=== PATIENT | male | born 1965 | race Caucasian/White ===

== ENCOUNTER 2018-01-02 05:39 | Emergency (ER) | payer MEDICARE, OTHER ==
[~2018-01-02] VITALS: Ht 162.6 cm; Wt 80.7 kg
[2018-01-02 05:48] VITALS: BP 140/79
[2018-01-02 06:24] LABS: APPEARANCE,URINE CLEAR (CLEAR); BILIRUBIN,URINE NEGATIVE (NEGATIVE); BLOOD, URINE NEGATIVE Ery/uL (NEGATIVE); COLOR,URINE YELLOW (YELLOW); KETONES,URINE NEGATIVE (NEGATIVE); LEUKOCYTE ESTERASE ,URINE NEGATIVE (NEGATIVE); NITRITE, URINE NEGATIVE (NEGATIVE); PH,URINE 6.5 (5.0-8.0); PROTEIN,URINE 1+ mg/dl (NEGATIVE); UGLUCOSE NEGATIVE (NEGATIVE); UROBILINOGEN,URINE 0.2 EU/dL (0.2)
[2018-01-02 06:25] LABS: BACTERIA,URINE None seen /HPF (None Seen); RBC,URINE 0-2 /HPF (0-2); WBC,URINE 0-2 /HPF (0-3)
[2018-01-02 06:26] LABS: MUCUS,URINE Few /LPF (None Seen); SQUAMOUS EPITHELIAL CELL,UR 0-2 /HPF (None Seen); URINE AMORPHOUS URATE Few /HPF (None Seen)
== END 2018-01-02 06:37 | disposition home or self-care (01) ==
LOC: ER 05:39
DX: R35.0 Frequency of micturition (principal); I10 Essential (primary) hypertension; E11.9 Type 2 diabetes mellitus without complications; N40.0 Benign prostatic hyperplasia without lower urinary tract symptoms; Z86.73 Personal history of transient ischemic attack (TIA), and cerebral infarction without residual deficits
CPT/HCPCS: 81000-TC; 87086-TC; A4606; Z7610

== ENCOUNTER 2019-12-17 09:09 | Emergency (ER) | payer MEDICARE, MEDICAID ==
[~2019-12-17] VITALS: Ht 162.6 cm; Wt 72.6 kg
--- NOTE | 2019-12-17 09:20 | NUR ---
patient came in to the er c/o right shoulder pain s/p lifting weights. On room air, breathing evenly and unlabored. kept comfortable, will continue to monitor accordingly.
[2019-12-17] MEDS ORDERED: LIDOCAINE 5% (PATCH) 1 EA PATCH TP SCH (09:30)
--- NOTE | 2019-12-17 09:40 | NUR ---
Galilea at bedside for x-ray.
--- NOTE | 2019-12-17 10:13 | NUR ---
Patient discharged to home in stable condition. Written and verbal after care instructions given. Patient verbalizes understanding of instruction.
[2019-12-17 10:14] VITALS: BP 140/78
== END 2019-12-17 10:15 | disposition home or self-care (01) ==
LOC: ER 09:09
DX: M25.511 Pain in right shoulder (principal); I10 Essential (primary) hypertension; E11.9 Type 2 diabetes mellitus without complications; N40.0 Benign prostatic hyperplasia without lower urinary tract symptoms; Z86.73 Personal history of transient ischemic attack (TIA), and cerebral infarction without residual deficits; X50.0XXA Overexertion from strenuous movement or load, initial encounter; Y93.89 Activity, other specified; Y92.89 Other specified places as the place of occurrence of the external cause; Y99.8 Other external cause status
CPT/HCPCS: 73030-TC

== ENCOUNTER 2022-11-22 11:24 | Emergency (ER) | payer OTHER ==
[~2022-11-22] VITALS: Ht 162.6 cm; Wt 74.4 kg
--- NOTE | 2022-11-22 11:39 | NUR ---
BIBS C/O POLYURIA X 1MONTH. DENIES PAIN OR BLOOD IN URINE.
--- NOTE | 2022-11-22 12:10 | NUR ---
MEDICAL DELIVERY DRIVER AT BEDSIDE
[2022-11-22 12:20] LABS: BASOPHILS % (AUTO) 0.7 % (0.0-2.0); EOSINOPHILS % (AUTO) 3.4 % (0.0-6.0); HEMATOCRIT 36 % (39-51); HEMOGLOBIN 11.8 g/dL (13.5-17.5); LYMPHOCYTES # (AUTO) 1.1 K/uL (0.8-4.8); LYMPHOCYTES % (AUTO) 25.3 % (20.0-44.0); MEAN CORPUSCULAR HGB CONC 33 g/dl (31.0-36.0); MEAN CORPUSCULAR VOLUME 89 fL (80-96); MONOCYTES # (AUTO) 0.3 K/uL (0.1-1.30); MONOCYTES % (AUTO) 7.8 % (2.0-12.0); NEUTROPHILS # (AUTO) 2.8 K/uL (1.8-8.9); NEUTROPHILS % (AUTO) 62.8 % (43.0-81.0); PLATELET COUNT (AUTO) 161 K/uL (150-450); WHITE BLOOD COUNT (AUTO) 4.4 K/uL (4.3-11.0)
[2022-11-22 12:27] LABS: BILIRUBIN,URINE NEGATIVE (NEGATIVE); COLOR,URINE YELLOW (YELLOW); LEUKOCYTE ESTERASE ,URINE NEGATIVE (NEGATIVE); NITRITE, URINE NEGATIVE (NEGATIVE); PROTEIN,URINE TRACE mg/dl (NEGATIVE); UGLUCOSE NEGATIVE (NEGATIVE); UROBILINOGEN,URINE 0.2 EU/dL (0.2)
[2022-11-22 12:30] LABS: CALCIUM, SERUM 8.6 mg/dL (8.5-10.1); CREATININE 1.3 mg/dL (0.6-1.3); POTASSIUM 4.5 mmol/L (3.5-5.1)
--- NOTE | 2022-11-22 12:42 | NUR ---
AT BEDSIDE FOR EVAL
[2022-11-22 12:43] LABS: BACTERIA,URINE None seen /HPF (None Seen); MUCUS,URINE Few /LPF (None Seen); RBC,URINE 0-2 /HPF (0-2); WBC,URINE NONE SEEN /HPF (0-3)
[2022-11-22 12:44] LABS: SQUAMOUS EPITHELIAL CELL,UR None Seen /HPF (None Seen)
[2022-11-22] MEDS ORDERED: DOXA2TAB2 PO (14:12)
[2022-11-22] MEDS ORDERED: FINA5TAB11 PO (14:12)
--- NOTE | 2022-11-22 14:42 | NUR ---
Patient discharged to home in stable condition. Written and verbal after care instructions given. Patient verbalizes understanding of instruction.
[2022-11-22 14:54] VITALS: BP 136/80; TEMP 98.3
== END 2022-11-22 14:42 | disposition home or self-care (01) ==
LOC: ER 11:27
DX: R35.1 Nocturia (principal); I10 Essential (primary) hypertension; E11.9 Type 2 diabetes mellitus without complications; Z60.2 Problems related to living alone
CPT/HCPCS: 36415; 80048-TC; 81001; 82962-TC; 85025-TC

== ENCOUNTER 2023-06-08 08:35 | Inpatient (IN) | payer OTHER ==
[~2023-06-08] VITALS: Ht 162.6 cm; Wt 74.8 kg
[~2023-06-08 08:35] MED LIST: DOXA2TAB2 PO; FINA5TAB11 PO
[2023-06-08 09:24] LABS: BASOPHILS % (AUTO) 0.5 % (0.0-2.0); EOSINOPHILS # (AUTO) 0.3 K/uL (0.0-0.7); EOSINOPHILS % (AUTO) 5.1 % (0.0-6.0); HEMATOCRIT 34 % (39-51); HEMOGLOBIN 11.7 g/dL (13.5-17.5); LYMPHOCYTES # (AUTO) 1.5 K/uL (0.8-4.8); LYMPHOCYTES % (AUTO) 28.3 % (20.0-44.0); MEAN CORPUSCULAR HEMOGLOBIN 31 PG (26.0-33.0); MEAN CORPUSCULAR HGB CONC 34 g/dl (31.0-36.0); MEAN CORPUSCULAR VOLUME 89 fL (80-96); MONOCYTES # (AUTO) 0.4 K/uL (0.1-1.30); MONOCYTES % (AUTO) 7.6 % (2.0-12.0); NEUTROPHILS # (AUTO) 3.2 K/uL (1.8-8.9); NEUTROPHILS % (AUTO) 58.5 % (43.0-81.0); PLATELET COUNT (AUTO) 163 K/uL (150-450); RED BLOOD CELL COUNT(AUTO) 3.85 MIL/uL (4.5-6.0); RED CELL DISTRIBUTION WIDTH 13.4 % (11.5-15.0); WHITE BLOOD COUNT (AUTO) 5.4 K/uL (4.3-11.0)
[2023-06-08 09:38] LABS: CALCIUM, SERUM 8.9 mg/dL (8.5-10.1); CARBON DIOXIDE 27 mmol/L (21-32); CHLORIDE 101 mmol/L (98-107); CREATININE 1.3 mg/dL (0.6-1.3); GLUCOSE 221 mg/dL (74-106); SODIUM SERUM 136 mmol/L (136-145); UREA NITROGEN, BLOOD 16 mg/dL (7-18)
[2023-06-08] MEDS ORDERED: ASPIRIN 81 MG TAB.CHEW PO ONE (10:30)
[2023-06-08] MEDS ORDERED: DOXA2TAB2 PO (10:32)
[2023-06-08] MEDS ORDERED: INSU100I30 SQ (10:32)
[2023-06-08] MEDS ORDERED: METF-440 PO (10:32)
[2023-06-08] MEDS ORDERED: AMLO10TA4 PO (10:32)
[2023-06-08] MEDS ORDERED: BENA40TA67 PO (10:32)
[2023-06-08] MEDS ORDERED: DOLU1TAB PO (10:32)
[2023-06-08] MEDS ORDERED: DULA1.5P SQ (10:32)
[2023-06-08] MEDS ORDERED: FINA5TAB11 PO (10:32)
[2023-06-08] MEDS ORDERED: ASPIRIN 81 MG TAB.CHEW ONE ×2 (10:35→10:36)
[2023-06-08] MEDS ORDERED: DEXTROSE 50%-WATER 50 ML DISP.SYRIN IV PRN (14:30)
[2023-06-08] MEDS ORDERED: ONDANSETRON HCL/PF 4 MG/2 ML VIAL IVP PRN (14:30)
[2023-06-08] MEDS ORDERED: Z GUARD REMEDY 4 OZ OINT TP PRN (14:30)
[2023-06-08] MEDS ORDERED: MORPHINE SULFATE INJ 2 MG/ML DISP.SYRIN IV PRN (14:30)
[2023-06-08] MEDS ORDERED: ACETAMINOPHEN 325 MG TABLET PO PRN (14:30)
[2023-06-08 15:35] LABS: THYROID STIMULATING HORMONE 1.451 uIU/mL (0.358-3.74)
[2023-06-08 16:00] VITALS: BP 154/81; TEMP 98; O2SAT 99
[2023-06-08] MEDS: INSULIN REGULAR, HUMAN 100 UNIT/ML 3 ML VIAL SQ PRN ×2 (17:22→22:24)
[2023-06-08] MEDS: BLOOD SUGAR DIAGNOSTIC 1 EACH STRIP IN SCH ×2 (17:33→22:15)
[2023-06-08 19:00] VITALS: BP 140/79; TEMP 98.4; O2SAT 97
[2023-06-08 20:00] VITALS: BP 140/79; TEMP 98.4; O2SAT 99
[2023-06-08] MEDS: ENOXAPARIN SODIUM 80 MG/0.8 ML DISP.SYRIN SQ SCH (21:33)
[2023-06-09] VITALS: BP 156/80; TEMP 98; O2SAT 98
[2023-06-09 04:00] VITALS: BP 152/85; TEMP 97.8; O2SAT 98
[2023-06-09 05:45] LABS: BASOPHILS % (AUTO) 0.5 % (0.0-2.0); EOSINOPHILS # (AUTO) 0.4 K/uL (0.0-0.7); EOSINOPHILS % (AUTO) 6.9 % (0.0-6.0); HEMATOCRIT 35 % (39-51); HEMOGLOBIN 12.2 g/dL (13.5-17.5); LYMPHOCYTES # (AUTO) 1.9 K/uL (0.8-4.8); LYMPHOCYTES % (AUTO) 33.1 % (20.0-44.0); MEAN CORPUSCULAR HEMOGLOBIN 31 PG (26.0-33.0); MEAN CORPUSCULAR HGB CONC 35 g/dl (31.0-36.0); MEAN CORPUSCULAR VOLUME 89 fL (80-96); MONOCYTES # (AUTO) 0.5 K/uL (0.1-1.30); MONOCYTES % (AUTO) 8.8 % (2.0-12.0); NEUTROPHILS # (AUTO) 2.9 K/uL (1.8-8.9); NEUTROPHILS % (AUTO) 50.7 % (43.0-81.0); PLATELET COUNT (AUTO) 163 K/uL (150-450); RED BLOOD CELL COUNT(AUTO) 3.95 MIL/uL (4.5-6.0); RED CELL DISTRIBUTION WIDTH 13.2 % (11.5-15.0); WHITE BLOOD COUNT (AUTO) 5.7 K/uL (4.3-11.0)
[2023-06-09 05:59] LABS: CALCIUM, SERUM 8.7 mg/dL (8.5-10.1); PHOSPHORUS 3.7 mg/dL (2.5-4.9); POTASSIUM 3.6 mmol/L (3.5-5.1)
[2023-06-09] MEDS: BLOOD SUGAR DIAGNOSTIC 1 EACH STRIP IN SCH ×4 (06:41→21:16)
[2023-06-09 08:00] VITALS: BP 152/85; TEMP 97.8; O2SAT 98
[2023-06-09] MEDS: PANTOPRAZOLE 40 MG TABLET.DR PO SCH (08:33)
[2023-06-09] MEDS: AMLODIPINE BESYLATE 10 MG TABLET PO SCH (10:11)
[2023-06-09] MEDS: FINASTERIDE (5 MG) 5 MG TABLET PO SCH (10:12)
[2023-06-09] MEDS: BENAZEPRIL HCL 20 MG TABLET PO SCH (10:12)
[2023-06-09] MEDS: ASPIRIN EC 81 MG TABLET.DR PO SCH (10:12)
[2023-06-09] MEDS: ENOXAPARIN SODIUM 80 MG/0.8 ML DISP.SYRIN SQ SCH ×2 (10:15→20:19)
[2023-06-09] MEDS: INSULIN GLARGINE, 100 UNIT/ML CARTRIDGE SQ SCH (10:27)
[2023-06-09 10:40] VITALS: BP 153/84; TEMP 98.1; O2SAT 94
[2023-06-09] MEDS: CARVEDILOL 3.125 MG TABLET PO SCH ×2 (14:03→18:13)
[2023-06-09] MEDS: LOSARTAN POTASSIUM 50 MG TABLET PO SCH (14:04)
[2023-06-09] MEDS ORDERED: MAGNESIUM OXIDE 400 MG TABLET PO SCH (17:30)
[2023-06-09 20:00] VITALS: BP 141/76; TEMP 98.2; O2SAT 98
[2023-06-09] MEDS: INSULIN REGULAR, HUMAN 100 UNIT/ML 3 ML VIAL SQ PRN (21:21)
[2023-06-10] VITALS (7 sets, daily range): BP systolic 106–155; BP diastolic 47–81; TEMP 97.1–98.3; O2SAT 95–99
[2023-06-10 05:48] LABS: BASOPHILS % (AUTO) 0.6 % (0.0-2.0); EOSINOPHILS # (AUTO) 0.5 K/uL (0.0-0.7); EOSINOPHILS % (AUTO) 7.8 % (0.0-6.0); HEMATOCRIT 36 % (39-51); HEMOGLOBIN 12.3 g/dL (13.5-17.5); LYMPHOCYTES # (AUTO) 1.9 K/uL (0.8-4.8); LYMPHOCYTES % (AUTO) 31.6 % (20.0-44.0); MEAN CORPUSCULAR HEMOGLOBIN 31 PG (26.0-33.0); MEAN CORPUSCULAR HGB CONC 34 g/dl (31.0-36.0); MEAN CORPUSCULAR VOLUME 90 fL (80-96); MONOCYTES # (AUTO) 0.6 K/uL (0.1-1.30); MONOCYTES % (AUTO) 9.2 % (2.0-12.0); NEUTROPHILS # (AUTO) 3.1 K/uL (1.8-8.9); NEUTROPHILS % (AUTO) 50.8 % (43.0-81.0); PLATELET COUNT (AUTO) 172 K/uL (150-450); RED BLOOD CELL COUNT(AUTO) 4.02 MIL/uL (4.5-6.0); RED CELL DISTRIBUTION WIDTH 13.3 % (11.5-15.0); WHITE BLOOD COUNT (AUTO) 6.2 K/uL (4.3-11.0)
[2023-06-10 06:05] LABS: CALCIUM, SERUM 8.9 mg/dL (8.5-10.1); MAGNESIUM 2.1 mg/dL (1.8-2.4); PHOSPHORUS 4.3 mg/dL (2.5-4.9); POTASSIUM 3.7 mmol/L (3.5-5.1)
[2023-06-10] MEDS: BLOOD SUGAR DIAGNOSTIC 1 EACH STRIP IN SCH ×4 (06:34→21:52)
[2023-06-10] MEDS: INSULIN REGULAR, HUMAN 100 UNIT/ML 3 ML VIAL SQ PRN ×4 (06:35→21:53)
[2023-06-10] MEDS: PANTOPRAZOLE 40 MG TABLET.DR PO SCH (07:00)
[2023-06-10] MEDS: ASPIRIN EC 81 MG TABLET.DR PO SCH (08:29)
[2023-06-10] MEDS: AMLODIPINE BESYLATE 10 MG TABLET PO SCH (08:30)
[2023-06-10] MEDS: FINASTERIDE (5 MG) 5 MG TABLET PO SCH (08:30)
[2023-06-10] MEDS: CARVEDILOL 3.125 MG TABLET PO SCH ×2 (08:30→16:51)
[2023-06-10] MEDS: LOSARTAN POTASSIUM 50 MG TABLET PO SCH (08:30)
[2023-06-10] MEDS: BENAZEPRIL HCL 20 MG TABLET PO SCH (08:31)
[2023-06-10] MEDS: ENOXAPARIN SODIUM 80 MG/0.8 ML DISP.SYRIN SQ SCH ×2 (08:34→21:00)
[2023-06-10] MEDS: INSULIN GLARGINE, 100 UNIT/ML CARTRIDGE SQ SCH (09:38)
[2023-06-10] MEDS ORDERED: METOPROLOL TARTRATE INJ 5 MG/5 ML AMPUL ONE (10:46)
[2023-06-10] MEDS ORDERED: IOHEXOL-350 100 ML VIAL IV ONE ×3 (10:46→11:15)
[2023-06-10] MEDS ORDERED: NITROGLYCERIN 0.4 MG/TAB BOTTLE ONE (10:46)
[2023-06-10] MEDS ORDERED: IV NS 0.9% 250 ML IV ONE (10:47)
[2023-06-10] MEDS ORDERED: CT SWABBABLE VALVE TRANS SET 1 EA INFUS.SET MC ONE (10:47)
[2023-06-10] MEDS ORDERED: NITROGLYCERIN 0.4 MG/TAB BOTTLE SL ONE (11:00)
[2023-06-10] MEDS: METOPROLOL TARTRATE INJ 5 MG/5 ML AMPUL IVP PRN ×3 (11:04→11:14)
[2023-06-10] MEDS: ATORVASTATIN 40 MG TABLET PO SCH (21:21)
[2023-06-11] VITALS (10 sets, daily range): BP systolic 134–160; BP diastolic 71–80; TEMP 97.9–99; O2SAT 95–98
[2023-06-11 05:52] LABS: BASOPHILS % (AUTO) 0.5 % (0.0-2.0); EOSINOPHILS # (AUTO) 0.4 K/uL (0.0-0.7); EOSINOPHILS % (AUTO) 5.7 % (0.0-6.0); HEMATOCRIT 36 % (39-51); HEMOGLOBIN 12.3 g/dL (13.5-17.5); LYMPHOCYTES # (AUTO) 1.7 K/uL (0.8-4.8); LYMPHOCYTES % (AUTO) 26.2 % (20.0-44.0); MEAN CORPUSCULAR HEMOGLOBIN 31 PG (26.0-33.0); MEAN CORPUSCULAR HGB CONC 35 g/dl (31.0-36.0); MEAN CORPUSCULAR VOLUME 89 fL (80-96); MONOCYTES # (AUTO) 0.6 K/uL (0.1-1.30); MONOCYTES % (AUTO) 8.3 % (2.0-12.0); NEUTROPHILS # (AUTO) 3.9 K/uL (1.8-8.9); NEUTROPHILS % (AUTO) 59.3 % (43.0-81.0); PLATELET COUNT (AUTO) 176 K/uL (150-450); RED BLOOD CELL COUNT(AUTO) 3.99 MIL/uL (4.5-6.0); WHITE BLOOD COUNT (AUTO) 6.7 K/uL (4.3-11.0)
[2023-06-11 06:02] LABS: INR 1.09 (0.91-1.10); PARTIAL THROMBOPLASTIN TIME 28.8 SEC (24.3-34.3); PROTHROMBIN TIME 11.5 SECS (9.2-11.1)
[2023-06-11 06:06] LABS: CALCIUM, SERUM 8.8 mg/dL (8.5-10.1); POTASSIUM 3.6 mmol/L (3.5-5.1)
[2023-06-11] MEDS: BLOOD SUGAR DIAGNOSTIC 1 EACH STRIP IN SCH ×4 (06:32→22:20)
[2023-06-11] MEDS: INSULIN REGULAR, HUMAN 100 UNIT/ML 3 ML VIAL SQ PRN ×4 (06:32→22:25)
[2023-06-11] MEDS: PANTOPRAZOLE 40 MG TABLET.DR PO SCH (08:18)
[2023-06-11] MEDS: FINASTERIDE (5 MG) 5 MG TABLET PO SCH (08:18)
[2023-06-11] MEDS: ASPIRIN EC 81 MG TABLET.DR PO SCH (08:18)
[2023-06-11] MEDS: LOSARTAN POTASSIUM 50 MG TABLET PO SCH (08:19)
[2023-06-11] MEDS: AMLODIPINE BESYLATE 10 MG TABLET PO SCH (08:19)
[2023-06-11] MEDS: BENAZEPRIL HCL 20 MG TABLET PO SCH (08:19)
[2023-06-11] MEDS: CARVEDILOL 3.125 MG TABLET PO SCH ×2 (08:20→17:22)
[2023-06-11] MEDS: INSULIN GLARGINE, 100 UNIT/ML CARTRIDGE SQ SCH (08:29)
[2023-06-11] MEDS: ENOXAPARIN SODIUM 80 MG/0.8 ML DISP.SYRIN SQ SCH ×2 (08:30→20:49)
[2023-06-11] MEDS ORDERED: LIDOCAINE HCL/MPF 1% 30 ML VIAL IJ ONE (12:17)
[2023-06-11] MEDS ORDERED: IV SET PRIMARY PUMP SET 1 EA INFUS.SET MC ONE (12:17)
[2023-06-11] MEDS ORDERED: IV NS 0.9% 1,000 ML ONE (12:17)
[2023-06-11] MEDS ORDERED: NITROGLYCERIN IN 5 % DEXTROSE 250 ML IV ONE (12:29)
[2023-06-11] MEDS ORDERED: IODIXANOL 150 ML IV ONE (12:51)
[2023-06-11] MEDS ORDERED: FENTANYL PF 100MCG/2ML AMPUL ONE (13:20)
[2023-06-11] MEDS ORDERED: MIDAZOLAM HCL 2 MG/2ML VIAL ONE (13:20)
[2023-06-11] MEDS: ATORVASTATIN 40 MG TABLET PO SCH (22:16)
[2023-06-12] VITALS: BP 131/67; TEMP 98.7; O2SAT 97
[2023-06-12 04:00] VITALS: BP 141/76; TEMP 98.8; O2SAT 100
[2023-06-12] MEDS: BLOOD SUGAR DIAGNOSTIC 1 EACH STRIP IN SCH ×2 (06:22→11:48)
[2023-06-12] MEDS: INSULIN REGULAR, HUMAN 100 UNIT/ML 3 ML VIAL SQ PRN ×2 (06:29→12:01)
[2023-06-12 08:00] VITALS: BP 149/80; TEMP 98.2; O2SAT 98
[2023-06-12] MEDS: LOSARTAN POTASSIUM 50 MG TABLET PO SCH (08:10)
[2023-06-12] MEDS: AMLODIPINE BESYLATE 10 MG TABLET PO SCH (08:11)
[2023-06-12] MEDS: BENAZEPRIL HCL 20 MG TABLET PO SCH (08:11)
[2023-06-12 08:12] VITALS: BP 149/80
[2023-06-12] MEDS: ASPIRIN EC 81 MG TABLET.DR PO SCH (08:12)
[2023-06-12] MEDS: PANTOPRAZOLE 40 MG TABLET.DR PO SCH (08:12)
[2023-06-12] MEDS: CARVEDILOL 3.125 MG TABLET PO SCH (08:12)
[2023-06-12] MEDS: FINASTERIDE (5 MG) 5 MG TABLET PO SCH (08:13)
[2023-06-12] MEDS: ENOXAPARIN SODIUM 80 MG/0.8 ML DISP.SYRIN SQ SCH (08:13)
[2023-06-12] MEDS: INSULIN GLARGINE, 100 UNIT/ML CARTRIDGE SQ SCH (08:15)
[2023-06-12] MEDS ORDERED: Aspirin Ec PO (11:12)
[2023-06-12] MEDS ORDERED: CARV3.122 PO (11:12)
== END 2023-06-12 12:30 | disposition home or self-care (01) | DRG 282 ==
LOC: ER 08:35 → TRANSITION 11:46 → TELE 14:45
PROVIDERS: ADMIT Nurse Practitioner Acute Care; ATTEND Internal Medicine
PROC: 4A023N7 Measurement of Cardiac Sampling and Pressure, Left Heart, Percutaneous Approach (ICD-10-PCS; principal; 2023-06-11)
PROC: B211YZZ Fluoroscopy of Multiple Coronary Arteries using Other Contrast (ICD-10-PCS; 2023-06-11)
DX: I21.4 Non-ST elevation (NSTEMI) myocardial infarction (principal); I25.10 Atherosclerotic heart disease of native coronary artery without angina pectoris; I10 Essential (primary) hypertension; E11.9 Type 2 diabetes mellitus without complications; Z86.73 Personal history of transient ischemic attack (TIA), and cerebral infarction without residual deficits; N40.0 Benign prostatic hyperplasia without lower urinary tract symptoms; Z79.85 Long-term (current) use of injectable non-insulin antidiabetic drugs; Z79.4 Long term (current) use of insulin; Z79.84 Long term (current) use of oral hypoglycemic drugs; R00.2 Palpitations
CPT/HCPCS: 36415; 71045-TC; 75574; 80048-TC; 80061-TC; 82962-TC; 83735-TC; 84100-TC; 84443-TC; 84484-TC; 85025-TC; 85610-TC; 85730-TC; 86850-TC; 93307-TC; A4223; G0378; G0500; J1644; J1650; J1815; J2250; J3010; J3490; J7030; J7050; Q9967

== ENCOUNTER 2023-11-20 10:03 | Inpatient (IN) | payer OTHER ==
[~2023-11-20] VITALS: Ht 162.6 cm; Wt 75.3 kg
[2023-11-20] VITALS (21 sets, daily range): BP systolic 125–222; BP diastolic 47–107; TEMP 98.2; O2SAT 94–97
[~2023-11-20 10:03] MED LIST changes: +AMLO10TA4 PO; +Aspirin Ec PO; +BENA40TA67 PO; +CARV3.122 PO; +DOLU1TAB PO; +DULA1.5P SQ; +INSU100I30 SQ; +METF-440 PO
[2023-11-20] MEDS ORDERED: DIAZEPAM 5 MG TABLET ONE (10:33)
[2023-11-20] MEDS ORDERED: LIDOCAINE 5% (PATCH) 1 EA PATCH TP ONE (10:33)
[2023-11-20] MEDS ORDERED: ACETAMINOPHEN 325 MG TABLET ONE (10:34)
[2023-11-20] MEDS: ACETAMINOPHEN 325 MG TABLET PO ONE (10:42)
[2023-11-20] MEDS: DIAZEPAM 5 MG TABLET PO ONE (10:43)
[2023-11-20] MEDS: LIDOCAINE 5% (PATCH) 1 EA PATCH TP SCH (10:43)
[2023-11-20] MEDS ORDERED: LABETALOL HCL IV 100MG VIAL ONE ×2 (10:53→14:11)
[2023-11-20 10:55] LABS: BASOPHILS # (AUTO) 0.1 K/uL (0.0-0.2); BASOPHILS % (AUTO) 1.1 % (0.0-2.0); EOSINOPHILS # (AUTO) 0.2 K/uL (0.0-0.7); EOSINOPHILS % (AUTO) 3.2 % (0.0-6.0); HEMATOCRIT 40 % (39-51); HEMOGLOBIN 13.6 g/dL (13.5-17.5); LYMPHOCYTES # (AUTO) 1.1 K/uL (0.8-4.8); LYMPHOCYTES % (AUTO) 15.7 % (20.0-44.0); MEAN CORPUSCULAR HEMOGLOBIN 29 PG (26.0-33.0); MEAN CORPUSCULAR HGB CONC 34 g/dl (31.0-36.0); MEAN CORPUSCULAR VOLUME 87 fL (80-96); MONOCYTES # (AUTO) 0.5 K/uL (0.1-1.30); MONOCYTES % (AUTO) 7.2 % (2.0-12.0); NEUTROPHILS # (AUTO) 5.1 K/uL (1.8-8.9); NEUTROPHILS % (AUTO) 72.8 % (43.0-81.0); PLATELET COUNT (AUTO) 210 K/uL (150-450); RED BLOOD CELL COUNT(AUTO) 4.63 MIL/uL (4.5-6.0); RED CELL DISTRIBUTION WIDTH 14.3 % (11.5-15.0)
[2023-11-20] MEDS: LABETALOL 20 MG/4 ML VIAL IV ONE (10:58)
[2023-11-20 11:08] LABS: CALCIUM, SERUM 8.8 mg/dL (8.5-10.1); CARBON DIOXIDE 27 mmol/L (21-32); CHLORIDE 102 mmol/L (98-107); CREATININE 0.9 mg/dL (0.6-1.3); GLUCOSE 202 mg/dL (74-106); POTASSIUM 4.2 mmol/L (3.5-5.1); SODIUM SERUM 135 mmol/L (136-145); UREA NITROGEN, BLOOD 11 mg/dL (7-18)
[2023-11-20] MEDS ORDERED: KETOROLAC TROMETHAMINE 15 MG/ML VIAL ONE (11:12)
[2023-11-20 11:24] LABS: ALANINE AMINOTRANSFERASE 18 U/L (12-78); ALBUMIN 3.4 g/dL (3.4-5.0); ALKALINE PHOSPHATASE 105 U/L (46-116); ASPARTATE AMINOTRANSFERASE 19 U/L (15-37); BILIRUBIN,DIRECT 0.1 mg/dL (0.0-0.2); BILIRUBIN,TOTAL 0.4 mg/dL (0.2-1.0); TOTAL PROTEIN, SERUM 8.5 g/dL (6.4-8.2)
[2023-11-20] MEDS ORDERED: FAMO40TA7 PO (11:24)
[2023-11-20] MEDS ORDERED: ROSU40TA23 PO (11:24)
[2023-11-20] MEDS ORDERED: ATOR40TA PO (11:24)
[2023-11-20] MEDS ORDERED: INSU100I30 SQ (11:24)
[2023-11-20] MEDS ORDERED: CHOL200010 PO (11:24)
[2023-11-20] MEDS ORDERED: CARV12.52 PO (11:24)
[2023-11-20] MEDS ORDERED: ASPI-1420 PO (11:24)
[2023-11-20] MEDS ORDERED: ALFU10TA10 PO (11:24)
[2023-11-20] MEDS: KETOROLAC TROMETHAMINE 15 MG/ML VIAL IV ONE (11:31)
[2023-11-20 11:38] LABS: INR 1.03 (0.91-1.10); PARTIAL THROMBOPLASTIN TIME 28.9 SEC (24.3-34.3); PROTHROMBIN TIME 10.6 SECS (9.2-11.1)
[2023-11-20] MEDS: LABETALOL HCL IV 100MG VIAL IV ONE (14:21)
[2023-11-20] MEDS ORDERED: ENALAPRILAT DIHYD. (2.5MG/2ML) 1.25 MG/ML VIAL IV ONE (16:30)
[2023-11-20] MEDS ORDERED: ENALAPRILAT INJ (1.25 MG/ML) 1.25 MG/ML VIAL IV ONE (16:55)
[2023-11-20] MEDS: ENALAPRILAT INJ (1.25 MG/ML) 1.25 MG/ML VIAL IV ONE (17:00)
[2023-11-20] MEDS ORDERED: ONDANSETRON HCL/PF 4 MG/2 ML VIAL IVP PRN (17:30)
[2023-11-20] MEDS ORDERED: NICARDIPINE HCL 40 MG in IV NS 0.9% 184 ML IV PRN (17:30)
[2023-11-20] MEDS ORDERED: MAGNESIUM HYDROXIDE 30 ML UDC PO PRN (17:30)
[2023-11-20] MEDS ORDERED: DEXTROSE 50%-WATER 50 ML DISP.SYRIN IV PRN (17:30)
[2023-11-20] MEDS ORDERED: Z GUARD REMEDY 4 OZ OINT TP PRN (17:30)
[2023-11-20] MEDS: NICARDIPINE IN NACL, ISO-OSM 200 ML IV PRN (18:58)
[2023-11-20] MEDS: BLOOD SUGAR DIAGNOSTIC 1 EACH STRIP IN SCH (20:09)
[2023-11-20] MEDS: METOCLOPRAMIDE HCL 10 MG/2 ML VIAL IV ONE (20:31)
[2023-11-20] MEDS: ASPIRIN 325 MG TABLET PO ONE (20:31)
[2023-11-20] MEDS: LISINOPRIL (20MG) 20 MG TABLET PO SCH (20:32)
[2023-11-20] MEDS: diphenhydrAMINE HCL 50 MG/ML VIAL IM ONE (20:35)
[2023-11-20] MEDS: METOCLOPRAMIDE HCL 10 MG/2 ML VIAL ONE (20:59)
[2023-11-20] MEDS: ASPIRIN 325 MG TABLET ONE (20:59)
[2023-11-20] MEDS: diphenhydrAMINE HCL 50 MG/ML VIAL ONE (21:00)
[2023-11-20] MEDS ORDERED: Medication Not On Formulary EA (Rosuvastatin Calcium 40 MG) PO SCH (22:00)
[2023-11-20] MEDS: ENOXAPARIN SODIUM 40 MG/0.4 ML DISP.SYRIN SQ SCH (22:05)
[2023-11-20] MEDS: ATORVASTATIN 40 MG TABLET PO SCH (22:06)
[2023-11-20] MEDS: NITROGLYCERIN PACKET 1 GM PACKET TOP SCH (22:06)
[2023-11-20] MEDS: INSULIN GLARGINE, 100 UNIT/ML CARTRIDGE SQ SCH (22:12)
[2023-11-21] VITALS (36 sets, daily range): BP systolic 102–186; BP diastolic 39–100; TEMP 97.5–98.4; O2SAT 94–99
[2023-11-21] MEDS: ACETAMINOPHEN 325 MG TABLET PO PRN (03:25)
[2023-11-21 04:57] LABS: BASOPHILS % (AUTO) 0.5 % (0.0-2.0); EOSINOPHILS % (AUTO) 3.6 % (0.0-6.0); HEMATOCRIT 35 % (39-51); HEMOGLOBIN 12.2 g/dL (13.5-17.5); LYMPHOCYTES % (AUTO) 18.4 % (20.0-44.0); MEAN CORPUSCULAR HEMOGLOBIN 30 PG (26.0-33.0); MEAN CORPUSCULAR HGB CONC 35 g/dl (31.0-36.0); MEAN CORPUSCULAR VOLUME 88 fL (80-96); MONOCYTES % (AUTO) 9.2 % (2.0-12.0); NEUTROPHILS % (AUTO) 68.3 % (43.0-81.0); PLATELET COUNT (AUTO) 177 K/uL (150-450); RED BLOOD CELL COUNT(AUTO) 4.02 MIL/uL (4.5-6.0); RED CELL DISTRIBUTION WIDTH 14.1 % (11.5-15.0); WHITE BLOOD COUNT (AUTO) 6.9 K/uL (4.3-11.0)
[2023-11-21 04:58] LABS: EOSINOPHILS # (AUTO) 0.2 K/uL (0.0-0.7); LYMPHOCYTES # (AUTO) 1.3 K/uL (0.8-4.8); MONOCYTES # (AUTO) 0.6 K/uL (0.1-1.30); NEUTROPHILS # (AUTO) 4.7 K/uL (1.8-8.9)
[2023-11-21 05:16] LABS: CHOLESTEROL 98 mg/dL (<200); HDL CHOLESTEROL 41 mg/dL (40-60); LDL 46 mg/dL (0-99); TRIGLYCERIDES 63 mg/dL (30-150)
[2023-11-21 05:17] LABS: CALCIUM, SERUM 8.6 mg/dL (8.5-10.1); CARBON DIOXIDE 24 mmol/L (21-32); CHLORIDE 101 mmol/L (98-107); CREATININE 1.2 mg/dL (0.6-1.3); GLUCOSE 179 mg/dL (74-106); MAGNESIUM 2.2 mg/dL (1.8-2.4); PHOSPHORUS 3.8 mg/dL (2.5-4.9); POTASSIUM 3.5 mmol/L (3.5-5.1); SODIUM SERUM 134 mmol/L (136-145); UREA NITROGEN, BLOOD 16 mg/dL (7-18)
[2023-11-21] MEDS: ASPIRIN EC 81 MG TABLET.DR PO SCH (08:25)
[2023-11-21] MEDS: PANTOPRAZOLE 40 MG TABLET.DR PO SCH (08:25)
[2023-11-21] MEDS: CHOLECALCIFEROL 1,000 UNIT TABLET (VIT D3) PO SCH (08:25)
[2023-11-21] MEDS: FINASTERIDE (5 MG) 5 MG TABLET PO SCH (08:25)
[2023-11-21] MEDS: CARVEDILOL 12.5 MG TABLET PO SCH (08:31)
[2023-11-21] MEDS: INSULIN GLARGINE, 100 UNIT/ML CARTRIDGE SQ SCH (08:32)
[2023-11-21] MEDS: VALSARTAN 80 MG TABLET PO SCH (09:57)
[2023-11-21] MEDS: INSULIN REGULAR, HUMAN 100 UNIT/ML 3 ML VIAL SQ PRN (16:50)
[2023-11-21] MEDS: hydrALAZINE HCL IV 20 MG VIAL IV PRN (20:26)
[2023-11-22] VITALS: BP 164/92; TEMP 97.8; O2SAT 98
[2023-11-22 04:00] VITALS: BP 151/84; TEMP 98; O2SAT 97
[2023-11-22 06:53] LABS: BASOPHILS % (AUTO) 0.5 % (0.0-2.0); EOSINOPHILS # (AUTO) 0.3 K/uL (0.0-0.7); EOSINOPHILS % (AUTO) 4.4 % (0.0-6.0); HEMATOCRIT 36 % (39-51); HEMOGLOBIN 12.5 g/dL (13.5-17.5); LYMPHOCYTES # (AUTO) 1.6 K/uL (0.8-4.8); LYMPHOCYTES % (AUTO) 23.2 % (20.0-44.0); MEAN CORPUSCULAR HEMOGLOBIN 31 PG (26.0-33.0); MEAN CORPUSCULAR HGB CONC 35 g/dl (31.0-36.0); MEAN CORPUSCULAR VOLUME 89 fL (80-96); MONOCYTES # (AUTO) 0.6 K/uL (0.1-1.30); MONOCYTES % (AUTO) 9.7 % (2.0-12.0); NEUTROPHILS # (AUTO) 4.2 K/uL (1.8-8.9); NEUTROPHILS % (AUTO) 62.2 % (43.0-81.0); PLATELET COUNT (AUTO) 176 K/uL (150-450); RED CELL DISTRIBUTION WIDTH 14.2 % (11.5-15.0); WHITE BLOOD COUNT (AUTO) 6.7 K/uL (4.3-11.0)
[2023-11-22 07:14] LABS: CALCIUM, SERUM 8.6 mg/dL (8.5-10.1); CREATININE 1.1 mg/dL (0.6-1.3); POTASSIUM 3.7 mmol/L (3.5-5.1)
[2023-11-22 08:00] VITALS: BP 151/84; TEMP 98.1; O2SAT 97
[2023-11-22] MEDS: hydrALAZINE HCL 50 MG TABLET PO SCH (10:23)
[2023-11-22] MEDS: CARVEDILOL 12.5 MG TABLET PO SCH (10:24)
[2023-11-22] MEDS: AMLODIPINE BESYLATE 5 MG TABLET PO SCH ×2 (11:34→20:26)
[2023-11-22 12:00] VITALS: BP 174/94; TEMP 98.2; O2SAT 97
[2023-11-22 16:00] VITALS: BP 145/88; TEMP 98.2; O2SAT 97
[2023-11-22 20:00] VITALS: BP 158/87; TEMP 97.7; O2SAT 97
[2023-11-23] VITALS: BP 155/85; TEMP 98.5; O2SAT 97
[2023-11-23 04:00] VITALS: BP 138/73; TEMP 97.7; O2SAT 100
[2023-11-23 07:01] LABS: CALCIUM, SERUM 8.4 mg/dL (8.5-10.1); CREATININE 1.1 mg/dL (0.6-1.3); MAGNESIUM 2.3 mg/dL (1.8-2.4); PHOSPHORUS 3.9 mg/dL (2.5-4.9); POTASSIUM 3.8 mmol/L (3.5-5.1)
[2023-11-23 07:06] LABS: BASOPHILS % (AUTO) 0.6 % (0.0-2.0); EOSINOPHILS # (AUTO) 0.3 K/uL (0.0-0.7); EOSINOPHILS % (AUTO) 4.9 % (0.0-6.0); HEMATOCRIT 36 % (39-51); HEMOGLOBIN 12.5 g/dL (13.5-17.5); LYMPHOCYTES % (AUTO) 28.8 % (20.0-44.0); MEAN CORPUSCULAR HEMOGLOBIN 31 PG (26.0-33.0); MEAN CORPUSCULAR HGB CONC 35 g/dl (31.0-36.0); MEAN CORPUSCULAR VOLUME 88 fL (80-96); MONOCYTES # (AUTO) 0.5 K/uL (0.1-1.30); MONOCYTES % (AUTO) 7.3 % (2.0-12.0); NEUTROPHILS % (AUTO) 58.4 % (43.0-81.0); PLATELET COUNT (AUTO) 180 K/uL (150-450); RED BLOOD CELL COUNT(AUTO) 4.08 MIL/uL (4.5-6.0); RED CELL DISTRIBUTION WIDTH 14.2 % (11.5-15.0); WHITE BLOOD COUNT (AUTO) 6.8 K/uL (4.3-11.0)
[2023-11-23 08:00] VITALS: BP 155/87; TEMP 97.7; O2SAT 100
[2023-11-23] MEDS: TAMSULOSIN 0.4 MG CAP.SR.24H PO SCH (08:29)
[2023-11-23] MEDS: JULUCA PO SCH (08:30)
[2023-11-23] MEDS: ISOSORBIDE DINITRATE (20MG) 20 MG TABLET PO SCH (09:56)
[2023-11-23 12:00] VITALS: BP 140/72; TEMP 97.8; O2SAT 100
[2023-11-23 16:00] VITALS: BP 135/77; TEMP 97.5; O2SAT 100
[2023-11-23] MEDS ORDERED: HYDR-4077 PO (16:05)
[2023-11-23] MEDS ORDERED: CARV12.52 PO (16:05)
[2023-11-23] MEDS ORDERED: ISOS20TA8 PO (16:05)
[2023-11-23] MEDS ORDERED: AMLO-212 PO (16:05)
[2023-11-23] MEDS ORDERED: LISI20TA30 PO (16:05)
[2023-11-23 16:13] VITALS: BP 135/77
== END 2023-11-23 17:25 | disposition home or self-care (01) | DRG 281 ==
LOC: ER 10:08 → ICU 18:18 → TELE1 11-21 11:53 → MEDSG1 11-23 10:10
PROVIDERS: ADMIT Nurse Practitioner Family; ATTEND Nurse Practitioner Family
DX: I16.1 Hypertensive emergency (principal); E87.1 Hypo-osmolality and hyponatremia; I21.A1 Myocardial infarction type 2; I10 Essential (primary) hypertension; I25.10 Atherosclerotic heart disease of native coronary artery without angina pectoris; E11.65 Type 2 diabetes mellitus with hyperglycemia; N40.0 Benign prostatic hyperplasia without lower urinary tract symptoms; E78.5 Hyperlipidemia, unspecified; Z86.73 Personal history of transient ischemic attack (TIA), and cerebral infarction without residual deficits; Z79.899 Other long term (current) drug therapy; Z79.4 Long term (current) use of insulin; Z79.85 Long-term (current) use of injectable non-insulin antidiabetic drugs; Z79.84 Long term (current) use of oral hypoglycemic drugs; Z79.82 Long term (current) use of aspirin; G43.919 Migraine, unspecified, intractable, without status migrainosus
CPT/HCPCS: 36415; 70450-TC; 71045-TC; 72125-TC; 80048-TC; 80061-TC; 80076-TC; 82962-TC; 83735-TC; 84100-TC; 84484-TC; 85025-TC; 85730-TC; 87081-TC; 93307-TC; A4223; G0378; J0360; J1200; J1650; J1815; J1885; J2765; J3490

== ENCOUNTER 2023-12-14 23:02 | Inpatient (IN) | payer OTHER ==
[~2023-12-14] VITALS: Ht 162.6 cm; Wt 76.2 kg
[~2023-12-14 23:02] MED LIST changes: +ALFU10TA10 PO; +AMLO-212 PO; -AMLO10TA4 PO; +ATOR40TA PO; -Aspirin Ec PO; -BENA40TA67 PO; +CARV12.52 PO; -CARV3.122 PO; +CHOL200010 PO; +FAMO40TA7 PO; +HYDR-4077 PO; +ISOS20TA8 PO; +LISI20TA30 PO; +ROSU40TA23 PO
[2023-12-14 23:26] VITALS: O2SAT 97
[2023-12-14 23:58] LABS: BASOPHILS # (AUTO) 0.1 K/uL (0.0-0.2); BASOPHILS % (AUTO) 0.8 % (0.0-2.0); EOSINOPHILS # (AUTO) 0.3 K/uL (0.0-0.7); EOSINOPHILS % (AUTO) 3.5 % (0.0-6.0); HEMATOCRIT 33 % (39-51); HEMOGLOBIN 11.2 g/dL (13.5-17.5); LYMPHOCYTES # (AUTO) 1.7 K/uL (0.8-4.8); LYMPHOCYTES % (AUTO) 23.2 % (20.0-44.0); MEAN CORPUSCULAR HEMOGLOBIN 30 PG (26.0-33.0); MEAN CORPUSCULAR HGB CONC 34 g/dl (31.0-36.0); MEAN CORPUSCULAR VOLUME 88 fL (80-96); MONOCYTES # (AUTO) 0.6 K/uL (0.1-1.30); NEUTROPHILS # (AUTO) 4.6 K/uL (1.8-8.9); NEUTROPHILS % (AUTO) 63.5 % (43.0-81.0); PLATELET COUNT (AUTO) 132 K/uL (150-450); RED BLOOD CELL COUNT(AUTO) 3.75 MIL/uL (4.5-6.0); RED CELL DISTRIBUTION WIDTH 14.1 % (11.5-15.0); WHITE BLOOD COUNT (AUTO) 7.2 K/uL (4.3-11.0)
[2023-12-15 00:17] LABS: CALCIUM, SERUM 8.9 mg/dL (8.5-10.1); CARBON DIOXIDE 23 mmol/L (21-32); CHLORIDE 101 mmol/L (98-107); CREATININE 1.4 mg/dL (0.6-1.3); GLUCOSE 109 mg/dL (74-106); SODIUM SERUM 136 mmol/L (136-145); UREA NITROGEN, BLOOD 25 mg/dL (7-18)
[2023-12-15 00:22] LABS: ALANINE AMINOTRANSFERASE 16 U/L (12-78); ALBUMIN 3.3 g/dL (3.4-5.0); ALKALINE PHOSPHATASE 101 U/L (46-116); ASPARTATE AMINOTRANSFERASE 13 U/L (15-37); BILIRUBIN,DIRECT 0.1 mg/dL (0.0-0.2); BILIRUBIN,TOTAL 0.4 mg/dL (0.2-1.0); TOTAL PROTEIN, SERUM 7.8 g/dL (6.4-8.2)
[2023-12-15] MEDS ORDERED: MECLIZINE HCL 25 MG TABLET ONE (00:33)
[2023-12-15] MEDS: MECLIZINE HCL 12.5 MG TABLET PO ONE (00:35)
[2023-12-15 00:39] LABS: INR 1.01 (0.91-1.10); PARTIAL THROMBOPLASTIN TIME 29.3 SEC (24.3-34.3); PROTHROMBIN TIME 10.7 SECS (9.2-11.1)
[2023-12-15 00:53] LABS: APPEARANCE,URINE CLEAR (CLEAR); BILIRUBIN,URINE NEGATIVE (NEGATIVE); BLOOD, URINE NEGATIVE Ery/uL (NEGATIVE); COLOR,URINE YELLOW (YELLOW); KETONES,URINE NEGATIVE (NEGATIVE); LEUKOCYTE ESTERASE ,URINE NEGATIVE (NEGATIVE); NITRITE, URINE NEGATIVE (NEGATIVE); PROTEIN,URINE NEGATIVE (NEGATIVE); UGLUCOSE NEGATIVE (NEGATIVE); UROBILINOGEN,URINE 0.2 EU/dL (0.2)
[2023-12-15 01:11] LABS: ERYTHROCYTE SEDIMENTATION RATE 37 MM/HR (0-20)
[2023-12-15] MEDS ORDERED: ASPIRIN 325 MG TABLET ONE (01:38)
[2023-12-15] MEDS: ASPIRIN 325 MG TABLET PO ONE (01:52)
[2023-12-15 02:30] VITALS: BP 150/63; TEMP 97.5; O2SAT 96
[2023-12-15] MEDS ORDERED: MAG HYDROX/AL HYDROX/SIMETH 30 ML UDC PO PRN (02:30)
[2023-12-15] MEDS ORDERED: MAGNESIUM HYDROXIDE 30 ML UDC PO PRN (02:30)
[2023-12-15] MEDS ORDERED: ONDANSETRON HCL/PF 4 MG/2 ML VIAL IVP PRN (02:30)
[2023-12-15] MEDS ORDERED: Z GUARD REMEDY 4 OZ OINT TP PRN (02:30)
[2023-12-15] MEDS ORDERED: ZOLPIDEM TARTRATE 5 MG TABLET PO PRN (02:30)
[2023-12-15] MEDS: IV 1/2NS 1000 ML 1,000 ML IV PRN (03:40)
[2023-12-15 04:00] VITALS: BP 130/57; TEMP 97.7; O2SAT 99
[2023-12-15] MEDS: hydrALAZINE HCL 50 MG TABLET PO SCH (04:05)
[2023-12-15 07:00] VITALS: BP 128/62; TEMP 98.1; O2SAT 95
[2023-12-15] MEDS: PANTOPRAZOLE 40 MG TABLET.DR PO SCH (07:37)
[2023-12-15] MEDS: CHOLECALCIFEROL 1,000 UNIT TABLET (VIT D3) PO SCH (08:17)
[2023-12-15] MEDS: FINASTERIDE (5 MG) 5 MG TABLET PO SCH (08:18)
[2023-12-15] MEDS: ISOSORBIDE DINITRATE (20MG) 20 MG TABLET PO SCH (08:18)
[2023-12-15] MEDS: CARVEDILOL 12.5 MG TABLET PO SCH (08:18)
[2023-12-15] MEDS: AMLODIPINE BESYLATE 5 MG TABLET PO SCH (08:19)
[2023-12-15] MEDS: LISINOPRIL (20MG) 20 MG TABLET PO SCH (08:19)
[2023-12-15] MEDS: DOXAZOSIN MESYLATE (1 MG) 1 MG TABLET PO SCH (08:19)
[2023-12-15] MEDS: ENOXAPARIN SODIUM 40 MG/0.4 ML DISP.SYRIN SQ SCH (08:37)
[2023-12-15] MEDS: INSULIN GLARGINE, 100 UNIT/ML CARTRIDGE SQ SCH ×2 (08:55→21:57)
[2023-12-15] MEDS ORDERED: DEXTROSE 50%-WATER 50 ML DISP.SYRIN IV PRN (10:00)
[2023-12-15] MEDS ORDERED: ASPI-1420 PO (10:27)
[2023-12-15] MEDS ORDERED: TAMS-12 PO (10:27)
[2023-12-15] MEDS ORDERED: LABE100T5 PO (10:27)
[2023-12-15] MEDS ORDERED: ACET-73 PO (10:27)
[2023-12-15] MEDS ORDERED: LORA10TA7 PO (10:27)
[2023-12-15] MEDS: INSULIN REGULAR, HUMAN 100 UNIT/ML 3 ML VIAL SQ PRN (11:07)
[2023-12-15] MEDS: BLOOD SUGAR DIAGNOSTIC 1 EACH STRIP IN SCH (11:07)
[2023-12-15 11:30] VITALS: BP 120/60; TEMP 98.4; O2SAT 96
[2023-12-15] MEDS ORDERED: IOHEXOL-350 100 ML VIAL IV ONE ×2 (11:54→17:44)
[2023-12-15] MEDS ORDERED: IV NS 0.9% 250 ML IV ONE ×2 (11:54→17:44)
[2023-12-15] MEDS ORDERED: CT SWABBABLE VALVE TRANS SET 1 EA INFUS.SET MC ONE ×2 (11:54→17:44)
[2023-12-15 14:35] LABS: CREATININE, URINE < 13.0 MG/DL (30.0-125.0); URINE SODIUM, RANDOM 15 mmol/l (40-220); URINE TOTAL PROTEIN 3.6 mg/dL (0-11.9)
[2023-12-15 14:45] LABS: APPEARANCE,URINE CLEAR (CLEAR); BILIRUBIN,URINE NEGATIVE (NEGATIVE); BLOOD, URINE NEGATIVE Ery/uL (NEGATIVE); COLOR,URINE YELLOW (YELLOW); KETONES,URINE NEGATIVE (NEGATIVE); LEUKOCYTE ESTERASE ,URINE NEGATIVE (NEGATIVE); NITRITE, URINE NEGATIVE (NEGATIVE); PROTEIN,URINE NEGATIVE (NEGATIVE); UGLUCOSE NEGATIVE (NEGATIVE); UROBILINOGEN,URINE 0.2 EU/dL (0.2)
[2023-12-15 16:00] VITALS: BP 140/73; TEMP 98.8; O2SAT 95
[2023-12-15 16:14] LABS: EOSINOPHIL,URINE None Seen
[2023-12-15 20:03] VITALS: BP 132/72; TEMP 98.4; O2SAT 94
[2023-12-15] MEDS: ATORVASTATIN 40 MG TABLET PO SCH (21:38)
[2023-12-15] MEDS ORDERED: Medication Not On Formulary EA (Rosuvastatin Calcium 40 MG) PO SCH (22:00)
[2023-12-16 00:14] VITALS: BP 144/77; TEMP 98.4; O2SAT 94
[2023-12-16 04:00] VITALS: BP 146/78; TEMP 98.3; O2SAT 95
[2023-12-16 07:00] VITALS: BP 157/78; TEMP 97.7; O2SAT 98
[2023-12-16 07:24] LABS: BASOPHILS % (AUTO) 0.4 % (0.0-2.0); EOSINOPHILS # (AUTO) 0.3 K/uL (0.0-0.7); EOSINOPHILS % (AUTO) 4.6 % (0.0-6.0); HEMATOCRIT 33 % (39-51); HEMOGLOBIN 11.3 g/dL (13.5-17.5); LYMPHOCYTES # (AUTO) 1.4 K/uL (0.8-4.8); LYMPHOCYTES % (AUTO) 25.8 % (20.0-44.0); MEAN CORPUSCULAR HEMOGLOBIN 31 PG (26.0-33.0); MEAN CORPUSCULAR HGB CONC 34 g/dl (31.0-36.0); MEAN CORPUSCULAR VOLUME 89 fL (80-96); MONOCYTES # (AUTO) 0.6 K/uL (0.1-1.30); MONOCYTES % (AUTO) 10.1 % (2.0-12.0); NEUTROPHILS # (AUTO) 3.3 K/uL (1.8-8.9); NEUTROPHILS % (AUTO) 59.1 % (43.0-81.0); PLATELET COUNT (AUTO) 127 K/uL (150-450); RED BLOOD CELL COUNT(AUTO) 3.71 MIL/uL (4.5-6.0); RED CELL DISTRIBUTION WIDTH 13.8 % (11.5-15.0); WHITE BLOOD COUNT (AUTO) 5.6 K/uL (4.3-11.0)
[2023-12-16 07:56] LABS: ALBUMIN 2.8 g/dL (3.4-5.0); BILIRUBIN,TOTAL 0.4 mg/dL (0.2-1.0); CREATININE 1.1 mg/dL (0.6-1.3); MAGNESIUM 2.1 mg/dL (1.8-2.4); PHOSPHORUS 3.9 mg/dL (2.5-4.9); POTASSIUM 3.9 mmol/L (3.5-5.1)
[2023-12-16 08:08] LABS: THYROID STIMULATING HORMONE 1.13 uIU/mL (0.358-3.74)
[2023-12-16] MEDS: TAMSULOSIN 0.4 MG CAP.SR.24H PO SCH (08:24)
[2023-12-16] MEDS: ASPIRIN 81 MG TAB.CHEW PO SCH (08:24)
[2023-12-16 08:57] LABS: CHOLESTEROL 94 mg/dL (<200); TRIGLYCERIDES 54 mg/dL (30-150)
[2023-12-16 08:58] LABS: HDL CHOLESTEROL 45 mg/dL (40-60); LDL 40 mg/dL (0-99)
[2023-12-16 11:30] VITALS: BP 128/70; TEMP 97.3; O2SAT 97
[2023-12-16] MEDS: NIFEdipine XL (30MG) 30 MG TAB PO SCH (12:41)
[2023-12-16 16:04] VITALS: BP 144/71; TEMP 97.7; O2SAT 96
[2023-12-16] MEDS ORDERED: MECLIZINE HCL 25 MG TABLET PO PRN (18:30)
[2023-12-16 20:43] VITALS: BP 128/63; TEMP 98.4; O2SAT 95
[2023-12-16] MEDS: ATORVASTATIN 40 MG TABLET PO SCH (21:15)
[2023-12-16] MEDS: ACETAMINOPHEN 325 MG TABLET PO PRN (23:51)
[2023-12-17 06:58] LABS: BASOPHILS % (AUTO) 0.4 % (0.0-2.0); EOSINOPHILS # (AUTO) 0.3 K/uL (0.0-0.7); EOSINOPHILS % (AUTO) 4.5 % (0.0-6.0); HEMATOCRIT 33 % (39-51); HEMOGLOBIN 11.4 g/dL (13.5-17.5); LYMPHOCYTES # (AUTO) 1.4 K/uL (0.8-4.8); LYMPHOCYTES % (AUTO) 18.1 % (20.0-44.0); MEAN CORPUSCULAR HEMOGLOBIN 31 PG (26.0-33.0); MEAN CORPUSCULAR HGB CONC 35 g/dl (31.0-36.0); MEAN CORPUSCULAR VOLUME 88 fL (80-96); MONOCYTES # (AUTO) 0.7 K/uL (0.1-1.30); MONOCYTES % (AUTO) 8.8 % (2.0-12.0); NEUTROPHILS # (AUTO) 5.1 K/uL (1.8-8.9); NEUTROPHILS % (AUTO) 68.2 % (43.0-81.0); PLATELET COUNT (AUTO) 136 K/uL (150-450); RED BLOOD CELL COUNT(AUTO) 3.73 MIL/uL (4.5-6.0); RED CELL DISTRIBUTION WIDTH 13.8 % (11.5-15.0); WHITE BLOOD COUNT (AUTO) 7.5 K/uL (4.3-11.0)
[2023-12-17 06:59] LABS: CALCIUM, SERUM 8.3 mg/dL (8.5-10.1); POTASSIUM 3.9 mmol/L (3.5-5.1)
[2023-12-17 07:00] VITALS: BP 134/75; TEMP 97.5; O2SAT 97
[2023-12-17] MEDS: ASPIRIN EC 81 MG TABLET.DR PO SCH (08:37)
[2023-12-17] MEDS: JULUCA PO SCH (08:38)
[2023-12-17 09:09] LABS: PTH, INTACT 25 pg/mL (15-65)
[2023-12-17 12:19] VITALS: BP 124/73
[2023-12-18 06:07] LABS: *SPE A/G RATIO 0.9 (0.7-1.7); *SPE ALBUMIN 3.2 g/dL (2.9-4.4); *SPE ALPHA-1-GLOBULIN 0.3 g/dL (0.0-0.4); *SPE ALPHA-2-GLOBULIN 0.7 g/dL (0.4-1.0); *SPE GLOBULIN, TOTAL 3.4 g/dL (2.2-3.9); *SPE M-SPIKE Not Observed g/dL (Not Observed); *SPE PROTEIN TOTAL 6.6 g/dL (6.0-8.5); *SPEGAMMA GLOBULIN 1.5 g/dL (0.4-1.8)
== END 2023-12-17 14:11 | disposition home or self-care (01) | DRG 149 ==
LOC: ER 23:19 → TELE 12-15 01:55 → UNDOADMIN 12-15 01:55 → TELE 12-15 02:15 → MED 12-16 13:31
PROVIDERS: ADMIT Nurse Practitioner Acute Care; ATTEND Nurse Practitioner Acute Care
DX: H81.10 Benign paroxysmal vertigo, unspecified ear (principal); I21.A1 Myocardial infarction type 2; N17.0 Acute kidney failure with tubular necrosis; E44.0 Moderate protein-calorie malnutrition; Z86.73 Personal history of transient ischemic attack (TIA), and cerebral infarction without residual deficits; I25.10 Atherosclerotic heart disease of native coronary artery without angina pectoris; I10 Essential (primary) hypertension; N40.0 Benign prostatic hyperplasia without lower urinary tract symptoms; E11.9 Type 2 diabetes mellitus without complications; Z79.4 Long term (current) use of insulin; Z79.85 Long-term (current) use of injectable non-insulin antidiabetic drugs; Z79.84 Long term (current) use of oral hypoglycemic drugs; Z79.899 Other long term (current) drug therapy; D63.8 Anemia in other chronic diseases classified elsewhere; E88.09 Other disorders of plasma-protein metabolism, not elsewhere classified; E78.5 Hyperlipidemia, unspecified; T44.5X5A Adverse effect of predominantly beta-adrenoreceptor agonists, initial encounter; Y92.9 Unspecified place or not applicable; I65.29 Occlusion and stenosis of unspecified carotid artery
CPT/HCPCS: 36415; 70450-TC; 70496-TC; 70498-TC; 71045-TC; 76770-TC; 80048-TC; 80053-TC; 80061-TC; 80076-TC; 82550-TC; 82570-TC; 82962-TC; 83735-TC; 83970; 84100-TC; 84155; 84165; 84300-TC; 84443-TC; 84484-TC; 85025-TC; 85652-TC; 85730-TC; 97116-TC; 97530-TC; A4223; G0378; J1650; J1815; J3490; J7050; J8597; Q9967

== ENCOUNTER 2025-02-16 14:37 | Inpatient (IN) | payer OTHER ==
[~2025-02-16] VITALS: Ht 162.6 cm; Wt 70.0 kg
[~2025-02-16 14:37] MED LIST changes: +ACET-73 PO; +ASPI-1420 PO; +LABE100T5 PO; +LORA10TA7 PO; +TAMS-12 PO
[2025-02-16 15:21] LABS: PLATELET COUNT (AUTO) 133 K/uL (150-450); RED BLOOD CELL COUNT(AUTO) 3.58 MIL/uL (4.5-6.0); RED CELL DISTRIBUTION WIDTH 14.3 % (11.5-15.0); WHITE BLOOD COUNT (AUTO) 5.1 K/uL (4.3-11.0)
[2025-02-16 15:29] LABS: CALCIUM, SERUM 9.3 mg/dL (8.5-10.1); CREATININE 1.7 mg/dL (0.6-1.3); SODIUM SERUM 137 mmol/L (136-145); UREA NITROGEN, BLOOD 35 mg/dL (7-18)
[2025-02-16 15:41] LABS: ASPARTATE AMINOTRANSFERASE 22 U/L (15-37); NT-PRO BNP 104 pg/mL (0-125); TOTAL PROTEIN, SERUM 7.7 g/dL (6.4-8.2)
[2025-02-16] MEDS ORDERED: LISI20TA30 PO (16:24)
[2025-02-16] MEDS ORDERED: EZET10TA15 PO (16:24)
[2025-02-16] MEDS ORDERED: AMLO5TAB4 PO (16:24)
[2025-02-16] MEDS ORDERED: CILO100T PO (16:24)
[2025-02-16] MEDS ORDERED: HYDR100T27 PO (16:24)
[2025-02-16] MEDS ORDERED: ASPIRIN 81 MG TAB.CHEW ONE (17:09)
[2025-02-16] MEDS: IV NS 0.9% 1,000 ML BAG IV ONE (17:14)
[2025-02-16] MEDS: ASPIRIN 81 MG TAB.CHEW PO ONE (17:14)
[2025-02-16] MEDS ORDERED: MORPHINE SULFATE INJ 2 MG/ML DISP.SYRIN IV PRN (18:00)
[2025-02-16] MEDS: NITROGLYCERIN 0.4 MG/TAB BOTTLE SL ONE (18:00)
[2025-02-16] MEDS ORDERED: ACETAMINOPHEN 325 MG TABLET PO PRN (18:00)
[2025-02-16] MEDS ORDERED: Z GUARD REMEDY 4 OZ OINT TP PRN (18:00)
[2025-02-16] MEDS ORDERED: MAGNESIUM HYDROXIDE 30 ML UDC PO PRN (18:00)
[2025-02-16] MEDS ORDERED: ONDANSETRON HCL/PF 4 MG/2 ML VIAL IVP PRN (18:00)
[2025-02-16] MEDS ORDERED: MAG HYDROX/AL HYDROX/SIMETH 30 ML UDC PO PRN (18:00)
[2025-02-16 20:00] VITALS: BP 172/73; TEMP 97.5; O2SAT 96
[2025-02-16] MEDS: TAMSULOSIN 0.4 MG CAP.SR.24H PO SCH (21:04)
[2025-02-16] MEDS: ATORVASTATIN 40 MG TABLET PO SCH (21:04)
[2025-02-16] MEDS: METOPROLOL TARTRATE 25 MG TABLET PO SCH (21:04)
[2025-02-16] MEDS: HEPARIN SODIUM, PORCINE 5000 UNITS/1 ML VIAL SQ SCH (21:05)
[2025-02-17] VITALS: BP_SYST 116; BP_SYST 138; BP_DIAS 51; BP_DIAS 79; TEMP 97.3; TEMP 98.1; O2SAT 97; O2SAT 98
[2025-02-17 04:00] VITALS: BP 142/75; TEMP 97.8; O2SAT 98
[2025-02-17 07:51] LABS: PLATELET COUNT (AUTO) 134 K/uL (150-450); RED BLOOD CELL COUNT(AUTO) 3.64 MIL/uL (4.5-6.0); RED CELL DISTRIBUTION WIDTH 14.1 % (11.5-15.0); WHITE BLOOD COUNT (AUTO) 4.5 K/uL (4.3-11.0)
[2025-02-17 08:00] VITALS: BP 149/77; TEMP 97.9; O2SAT 96
[2025-02-17 08:25] LABS: CALCIUM, SERUM 9.1 mg/dL (8.5-10.1); CREATININE 1.2 mg/dL (0.6-1.3); PHOSPHORUS 3.0 mg/dL (2.5-4.9); SODIUM SERUM 143.0 mmol/L (136-145); UREA NITROGEN, BLOOD 23.0 mg/dL (7-18)
[2025-02-17 08:40] LABS: LDL 24.0 mg/dL (0-99)
[2025-02-17] MEDS: AMLODIPINE BESYLATE 5 MG TABLET PO SCH (08:48)
[2025-02-17] MEDS: LORATADINE 10 MG TABLET PO SCH (08:48)
[2025-02-17] MEDS: EZETIMIBE 10 MG TABLET PO SCH (08:48)
[2025-02-17] MEDS: CILOSTAZOL 100 MG TABLET PO SCH (08:48)
[2025-02-17] MEDS: FAMOTIDINE (20 MG) 20 MG TABLET PO SCH (08:48)
[2025-02-17] MEDS: ASPIRIN 81 MG TAB.CHEW PO SCH (08:49)
[2025-02-17] MEDS: METOPROLOL TARTRATE 25 MG TABLET PO SCH (10:45)
[2025-02-17] MEDS: ENOXAPARIN SODIUM 40 MG/0.4 ML DISP.SYRIN SQ SCH (10:48)
[2025-02-17 12:00] VITALS: BP 151/75; TEMP 97.9; O2SAT 95
[2025-02-17 16:00] VITALS: BP 133/77; TEMP 97.5; O2SAT 94
[2025-02-17 20:00] VITALS: BP 130/70; TEMP 98.1; O2SAT 95
[2025-02-17] MEDS: HEPARIN SODIUM, PORCINE 5000 UNITS/1 ML VIAL SQ ONE (20:24)
[2025-02-18] VITALS: BP 116/61; TEMP 98.1; O2SAT 97
[2025-02-18 04:00] VITALS: BP 132/76; TEMP 98.1; O2SAT 97
[2025-02-18 06:40] LABS: PLATELET COUNT (AUTO) 142 K/uL (150-450); RED BLOOD CELL COUNT(AUTO) 3.76 MIL/uL (4.5-6.0); RED CELL DISTRIBUTION WIDTH 14.1 % (11.5-15.0); WHITE BLOOD COUNT (AUTO) 4.5 K/uL (4.3-11.0)
[2025-02-18 07:01] LABS: ASPARTATE AMINOTRANSFERASE 23.0 U/L (15-37); CALCIUM, SERUM 9.3 mg/dL (8.5-10.1); CREATININE 1.2 mg/dL (0.6-1.3); PHOSPHORUS 3.8 mg/dL (2.5-4.9); SODIUM SERUM 140.0 mmol/L (136-145); TOTAL PROTEIN, SERUM 7.3 g/dL (6.4-8.2); UREA NITROGEN, BLOOD 21.0 mg/dL (7-18)
[2025-02-18 07:02] LABS: CREATINE KINASE, TOTAL 223.0 U/L (39-308)
[2025-02-18 08:02] VITALS: BP 143/78; TEMP 98.2; O2SAT 95
[2025-02-18] MEDS: ISOSORBIDE DINITRATE (20MG) 20 MG TABLET PO SCH (09:26)
[2025-02-18 12:15] VITALS: BP 133/70; TEMP 97.5; O2SAT 96
[2025-02-18] MEDS ORDERED: ISOS20TA8 PO (13:10)
[2025-02-18] MEDS ORDERED: METO25TA20 PO (13:10)
[2025-02-18] MEDS ORDERED: ASPI-1169 PO (13:10)
[2025-02-19 05:08] LABS: PTH, INTACT 12 pg/mL (15-65)
== END 2025-02-18 17:10 | disposition home or self-care (01) | DRG 281 ==
LOC: ER 14:43 → TELE1 18:08
PROVIDERS: ADMIT Nurse Practitioner Acute Care; ATTEND Nurse Practitioner Acute Care
DX: I25.10 Atherosclerotic heart disease of native coronary artery without angina pectoris (principal); N17.9 Acute kidney failure, unspecified; I21.A1 Myocardial infarction type 2; K21.9 Gastro-esophageal reflux disease without esophagitis; E11.65 Type 2 diabetes mellitus with hyperglycemia; I10 Essential (primary) hypertension; R06.01 Orthopnea; E11.51 Type 2 diabetes mellitus with diabetic peripheral angiopathy without gangrene; Z86.73 Personal history of transient ischemic attack (TIA), and cerebral infarction without residual deficits; N40.0 Benign prostatic hyperplasia without lower urinary tract symptoms; Z88.0 Allergy status to penicillin; Z79.84 Long term (current) use of oral hypoglycemic drugs; Z79.02 Long term (current) use of antithrombotics/antiplatelets; E78.5 Hyperlipidemia, unspecified; M89.8X9 Other specified disorders of bone, unspecified site; D63.8 Anemia in other chronic diseases classified elsewhere; I77.9 Disorder of arteries and arterioles, unspecified
CPT/HCPCS: 36415; 71045-TC; 80048-TC; 80053-TC; 80061-TC; 80076-TC; 82550-TC; 83735-TC; 83880; 83970; 84100-TC; 84155; 84165; 84443-TC; 84484-TC; 85025-TC; 93307-TC; G0378; J1644; J1650; J7030

== ENCOUNTER 2025-06-09 07:51 | Emergency (ER) | payer OTHER ==
[~2025-06-09] VITALS: Ht 134.6 cm; Wt 74.4 kg
[~2025-06-09 07:51] MED LIST changes: -ACET-73 PO; -ALFU10TA10 PO; -AMLO-212 PO; +AMLO5TAB4 PO; +ASPI-1169 PO; -ASPI-1420 PO; -ATOR40TA PO; -CARV12.52 PO; +CILO100T PO; -DOLU1TAB PO; -DOXA2TAB2 PO; -DULA1.5P SQ; +EZET10TA15 PO; -FINA5TAB11 PO; -HYDR-4077 PO; +HYDR100T27 PO; -INSU100I30 SQ; -LABE100T5 PO; +METO25TA20 PO
[2025-06-09 09:08] LABS: APPEARANCE,URINE CLEAR (CLEAR); BLOOD, URINE NEGATIVE Ery/uL (NEGATIVE); LEUKOCYTE ESTERASE ,URINE NEGATIVE (NEGATIVE); NITRITE, URINE NEGATIVE (NEGATIVE); UGLUCOSE NEGATIVE (NEGATIVE)
[2025-06-09 09:13] LABS: ADD URINE CULTURE NO; SQUAMOUS EPITHELIAL CELL,UR None Seen /HPF (None Seen)
[2025-06-09 10:02] VITALS: BP 150/88; TEMP 98; O2SAT 98
== END 2025-06-09 10:03 | disposition home or self-care (01) ==
LOC: ER 08:18
DX: R35.0 Frequency of micturition (principal); I11.9 Hypertensive heart disease without heart failure; E11.9 Type 2 diabetes mellitus without complications; N40.1 Benign prostatic hyperplasia with lower urinary tract symptoms; Z79.82 Long term (current) use of aspirin; Z79.84 Long term (current) use of oral hypoglycemic drugs; Z79.899 Other long term (current) drug therapy; Z86.73 Personal history of transient ischemic attack (TIA), and cerebral infarction without residual deficits; Z88.0 Allergy status to penicillin; Z60.2 Problems related to living alone
CPT/HCPCS: 81001